=== PATIENT | female | born 1945 | race Two or more races ===

== ENCOUNTER 2025-06-10 12:14 | Emergency (ER) | payer OTHER ==
[~2025-06-10] VITALS: Ht 157.5 cm; Wt 69.1 kg
--- NOTE | 2025-06-10 15:16 | ED.PDOC ---
Back pain HPI HPI Comments 79M presents to the ER w/ prior SHx of Tubal Ligation and the c/c of rib pain. Pt reports on having left sided rib pain x5 days s/p trip/fall.Denies chills, LOC, Head Injury, fever, N/V/D, SOB, CP. 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 Family History Family History: Reviewed,noncontributory to illness, Unknown Social History Smoker: Non-Smoker Alcohol: Denies ETOH Use Drugs: Denies Drug Use Lives In: Home Constitutional: denies: chills, diaphoresis, fatigue, fever, malaise, sweats, weakness, others EENTM: denies: blurred vision, double vision, ear bleeding, ear discharge, ear drainage, ear pain, ear ringing, eye pain, eye redness, hearing loss, mouth pain, mouth swelling, nasal discharge, nose bleeding, nose congestion, nose pain, photophobia, tearing, throat pain, throat swelling, voice changes, others Respiratory: denies: cough, hemoptysis, orthopnea, SOB at rest, shortness of breath, SOB with excertion, stridor, wheezing, others Cardiovascular: denies: chest pain, dizzy spells, diaphoresis, Dyspnea on exertion, edema, irregular heart beat, left arm pain, lightheadedness, palpitations, PND, syncope, others Gastrointestinal: denies: abdomen distended, abdominal pain, blood streaked bowels, constipated, diarrhea, dysphagia, difficulty swallowing, hematemesis, melena, nausea, poor appetite, poor fluid intake, rectal bleeding, rectal pain, vomiting, others Genitourinary: denies: abnormal vagina bleeding, burning, dyspareunia, dysuria, flank pain, frequency, hematuria, incontinence, pain, , vagina discharge, urgency, others Neurological: denies: dizziness, fainting, headache, left sided numbness, left sided weakness, numbness, paresthesia, pre-existing deficit, right sided numbness, right sided weakness, seizure, speech problems, tingling, tremors, weakness, others Musculoskeletal: reports: others (rib pain); denies: back pain, gout, joint pain, joint swelling, muscle pain, muscle stiffness, neck pain Integumetry: denies: bruises, change in color, change in hair/nails, dryness, laceration, lesions, lumps, rash, wounds, others Allergic/Immunocompromised: denies: Difficulty Healing, Frequent Infections, Hives, Itching, others Hematologic/Lymphatic: denies: anemia, blood clots, easy bleeding, easy bruising, swollen glands, others Endocrine: denies: excessive hunger, excessive sweating, excessive thirst, excessive urination, flushing, intolerance to cold, intolerance to heat, unexplained weight gain, unexplained weight loss, others Psychiatric: denies: anxiety, bipolar disorder, depression, hopeless, panic disorder, schizophrenia, sleepless, suicidal, others All Other Systems: Reviewed and Negative Physical Exam General Appearance: Moderate Distress, Normal HEENT: Normal ENT Inspection, PERRL/EOMI, Pharynx Normal, TMs Normal Neck: Full Range of Motion, Non-Tender, Normal, Normal Inspection Respiratory: Chest Non-Tender, Lungs Clear, No Accessory Muscle Use, No Respiratory Distress, Normal Breath Sounds Cardiovascular: No Edema, No JVD, No Murmur, No Gallop, Normal Peripheral Pulses, Regular Rate/Rhythm Breast Exam: Deferred Gastrointestinal: LUQ, No Organomegaly, No Pulsatile Mass, Normal Bowel Sounds, Splenomegaly, Tenderness Genitalia: Deferred Pelvic: Deferred Rectal: Deferred Extremities: No calf tenderness, Normal capillary refill, Normal inspection, Normal range of motion, Non-tender, No pedal edema Musculoskeletal : Apperance: Normal Neurologic: Alert, marriage performer II-XII nml as Tested, No Motor Deficits, Normal Affect, Normal Mood, No Sensory Deficits Cerebellar Function: Normal Reflexes: Normal Skin: Dry, Normal Color, Warm Peripheral Pulses: 1+ carotid (R), 1+ carotid (L) Lymphatic: No Adenopathy Was a procedure done? Was a procedure done?: No Back Pain Differential Dx Differential Diagnosis: Musculoskeletal Pain, Strain, Other (Possible spleen fracture) X-Ray, Labs, Meds, VS Vital Signs Date Time Temp Pulse Resp B/P (MAP) Pulse Ox O2 Delivery O2 Flow Rate FiO2 06/10/25 16:42 80 17 96 Room Air 06/10/25 16:42 97.9 80 17 104/52 (69) 96 97.9 06/10/25 12:29 98.5 71 18 138/71 (93) 95 98.5 Lab Test 06/10/25 15:34 Range/Units White Blood Count 7.9 4.4-10.8 10^3/uL Red Blood Count 4.76 4.0-5.20 10^6/uL Hemoglobin 13.2 12.2-16.2 g/dL Hematocrit 40.2 36.0-46.0 % Mean Corpuscular Volume 84.4 80.0-100.0 fL Mean Corpuscular Hemoglobin 27.8 L 28.0-32.0 pg Mean Corpuscular Hemoglobin Concent 32.9 32.0-36.0 g/dL Red Cell Distribution Width 13.9 11.8-14.3 % Platelet Count 436 140-450 10^3/uL Mean Platelet Volume 7.2 6.9-10.8 fL Neutrophils (%) (Auto) 63.3 37.0-80.0 % Lymphocytes (%) (Auto) 23.9 10.0-50.0 % Monocytes (%) (Auto) 5.0 0.0-12.0 % Eosinophils (%) (Auto) 7.3 H 0.0-7.0 % Basophils (%) (Auto) 0.5 0.0-2.0 % Neutrophils # (Auto) 5.0 1.6-8.6 10 ^3/uL Lymphocytes # (Auto) 1.9 0.4-5.4 10 ^3/uL Monocytes # (Auto) 0.4 0-1.3 10 ^3/uL Eosinophils # (Auto) 0.6 0-0.8 10 ^3/uL Basophils # (Auto) 0 0-0.2 10 ^3/uL Nucleated Red Blood Cells 0.0 % Sodium Level 142 136-145 mmol/L Potassium Level 3.9 3.5-5.1 mmol/L Chloride Level 107 98-107 mmol/L Carbon Dioxide Level 27 20-31 mmol/L Anion Gap 8 5-15 Blood Urea Nitrogen 11 9-23 mg/dL Creatinine 0.71 0.550-1.02 mg/dL Glomerular Filtration Rate Calc 87 >90 mL/min BUN/Creatinine Ratio 15.5 10.0-20.0 Serum Glucose 134 H 74-106 mg/dL Calcium Level 10.2 8.7-10.4 mg/dL Lipase 37 12-53 U/L X-Ray, Labs, Meds, VS Comment Course in the emergency department eventful Patient came in because of pain in the left upper quadrant where she has a six rib fracture after a fall and she went to [place] told her to come i to the ER to make sure she does not have an intra-abdominal injury CT of abdomen and pelvis is normal except for multiple gallstones also right kidney cyst at 3 cm large no problem with the spleen Patient will be discharged home Time of 1ST Reevaluation: 15:45 Reevaluation 1ST: Unchanged Time of 2ND Reevaluation: 17:39 Reevaluation 2ND: Improved Consultation: PCP Patient Education/Counseling: Diagnosis, Treatment, Prognosis, Need For Follow Up Family Education/Counseling: Diagnosis, Treatment, Prognosis, Need For Follow Up, No Family Present SEPSIS Sepsis Screen Date sepsis recognized/suspect: Jun 10, 2025 Time Sepsis recognized/suspect: 1220 Recent Procedure: No On Antibiotic Therapy: No Respiratory Rate >20: No Heart Rate >90: No Temp<36 C (96.8 F) or >38.3 C: No SBP <90 or MAP <65 mmHG: No New Acute Mental Status Change: No Is the patient on CPAP, BIPAP,: No Physician Orders Ct Ab Pel With Iv Con Only (06/10/25 15:19) Urinalysis (06/10/25 15:20) Vital Signs Date Time Temp Pulse Resp B/P (MAP) Pulse Ox O2 Delivery O2 Flow Rate FiO2 06/10/25 16:42 80 17 96 Room Air 06/10/25 16:42 97.9 80 17 104/52 (69) 96 97.9 06/10/25 12:29 98.5 71 18 138/71 (93) 95 98.5 Laboratory Tests Test 06/10/25 15:34 White Blood Count 7.9 10^3/uL (4.4-10.8) Departure 1 Departure Time of Disposition: 17:39 Impression: Primary Impression: Fracture of six ribs of left side Additional Impressions: Chest wall pain Fall at home Kidney cyst, acquired Ruled Out: Spleen injury Disposition: HOME / SELF CARE / HOMELESS Condition: Fair Additional Instructions: Local heat and follow up with your PCP e-Prescriptions Naproxen Sodium (ALEVE ARTHRITIS) 220 Mg Tab 220 MG PO B.i.d. for 10 Days, #20 TAB Prov: EDINSON KELLY MD 06/10/25 Tramadol Hcl (Tramadol Hcl) 50 Mg Tab 50 MG PO BID for 5 Days, #10 TAB Prov: EDINSON KELLY MD 06/10/25 Discharged With: Self, Relative Critical Care Note Critical Care Time?: No Stability Stability form required: No I personally scribed for EDINSON KELLY MD ([email or web address]) on 06/10/25 at 15:16. Electronically submitted by Irvin Ha ([email or web address]). EDINSON KELLY MD Jun 10, 2025 15:16
[2025-06-10 15:54] LABS: Hematocrit 40.2 % (36.0-46.0); Hemoglobin 13.2 g/dL (12.2-16.2); Mean Corpuscular Hemoglobin 27.8 pg (28.0-32.0); Mean Corpuscular Volume 84.4 fL (80.0-100.0); Nucleated Red Blood Cells % 0.0 %
[2025-06-10 15:56] LABS: Chloride 107 mmol/L (98-107); Potassium 3.9 mmol/L (3.5-5.1); Sodium 142 mmol/L (136-145)
[2025-06-10 15:57] LABS: Anion Gap 8 (5-15); Carbon Dioxide 27 mmol/L (20-31)
[2025-06-10 15:58] LABS: Calcium 10.2 mg/dL (8.7-10.4)
[2025-06-10 16:02] LABS: BUN/Creatinine Ratio 15.5 (10.0-20.0); Blood Urea Nitrogen 11 mg/dL (9-23)
[2025-06-10 16:09] LABS: Glucose 134 mg/dL (74-106)
[2025-06-10 16:16] LABS: Lipase 37 U/L (12-53)
[2025-06-10 16:42] VITALS: BP 104/52; PULSE 80; RESP 17; TEMP 97.9; O2SAT 96
[2025-06-10] MEDS: IOHEXOL 300 MG/ML 100ML BOTTLE IJ ONE (17:24)
--- NOTE | 2025-06-10 17:30 | DVH ---
CT CT AB PEL WITH IV CON ONLY INDICATION: Fractured ribs left side fall pain spleen area EXAM DATE: 06/10/2025 04:42 PM COMPARISON: None RADIATION DOSE: CTDIvol: 13.73 mGy, DLP: 745.36 mGy*cm PROCEDURE: Helical CT images were obtained of the abdomen and pelvis with IV contrast Sagittal and co reza reconstructions are provided. ORAL CONTRAST: None. ADDITIONAL IMAGES / REFORMATS: None All CT s cans at this medical facility are performed using dose modulation techniques as appropriate to a perf ormed exam including the following: Automated exposure control was utilized; adjustment of the MA and /or KV according to patient size; and use of iterative reconstruction technique. FINDINGS: LUNG BASE: Normal. LIVER: Normal. GALLBLADDER AND BILIARY TREE: Multiple gallstones are visualized. No intra- or extrahepatic biliary ductal dilation. PANCREAS: Normal. SPLEEN: Normal. BOWEL: Severe colonic diverticulosis. The appendix is short and appears normal. ADRENALS: Normal. KIDNEYS AND URETER: 3.0 cm right kidney cyst. Small left parapelvic cysts. BLADDER: Normal. REPRODUCTIVE ORGANS: Absent uterus. LYMPH NODES:No lymphadenopathy. PERITONEUM: No ascites or free air. No other fluid collection. VESSELS: Scattered atherosclerotic calcifications are noted. RETROPERITONEUM: Normal. ABDOMINAL WALL: Normal. BONES: Scattered osseous degenerative changes are noted. Non displaced left lateral 6th rib fracture. IMPRESSION: No acute intraabdominal abnormality. The spleen appears normal. Non displaced left lateral 6th rib fr acture. Cholelithiasis.
[2025-06-10] MEDS ORDERED: TRAM50TA2 PO (17:42)
[2025-06-10] MEDS ORDERED: NAPR-759 PO (17:42)
== END 2025-06-10 18:27 | disposition home or self-care (01) ==
LOC: ER 12:14
DX: S22.42XA Multiple fractures of ribs, left side, initial encounter for closed fracture (principal); N28.1 Cyst of kidney, acquired; R07.89 Other chest pain; Z98.51 Tubal ligation status; W18.39XA Other fall on same level, initial encounter; Y93.89 Activity, other specified; Y92.098 Other place in other non-institutional residence as the place of occurrence of the external cause; Y99.8 Other external cause status
CPT/HCPCS: 36415; 74177; 80048; 83690; 85025; 99285; Q9967